=== PATIENT | female | born 1980 | race African-American/Black ===

== ENCOUNTER 2016-05-07 08:35 | Day surgery (SDC) | payer OTHER ==
[2016-04-30 12:16] LABS: HEMATOCRIT 39.1 % (36.0-48.0)
[2016-04-30 12:34] LABS: BUN (BLOOD UREA NITROGEN) 20 MG/DL (6-23); CALCIUM, SERUM 9.1 MG/DL (8.5-10.4); CHLORIDE, SERUM 104 MMOL/L (96-112); CO2 (CARBON DIOXIDE) 24 MMOL/L (24-34); CREATININE 0.76 MG/DL (0.55-1.02); GFR AFRICAN AMERICAN 118 ML/MIN (>=60); GFR NON AFRICAN AMERICAN 102 ML/MIN (>=60); GLUCOSE, SERUM 85 MG/DL (60-99); POTASSIUM, SERUM 4.2 MMOL/L (3.5-5.3); SODIUM, SERUM 140 MMOL/L (135-148)
[2016-04-30 17:11] LABS: A/G RATIO 0.9 (0.7-1.9); ALBUMIN 3.8 G/DL (3.5-5.0); ALKALINE PHOSPHATASE 65 U/L (45-117); GLOBULIN 4.4 G/DL (2.5-4.1); SGPT(ALT) 25 U/L (5-65); TOTAL BILIRUBIN 0.4 MG/DL (0-1.2); TOTAL PROTEIN 8.2 G/DL (6.0-8.5)
[2016-04-30 17:12] LABS: SGOT(AST) 21 U/L (5-40)
--- NOTE | ~2016-05-07 | OP ---
Record Of Operation [facility] [address] [place]. [address] NAME: NYASIA SOLIS : 82 STATUS : [facility]#: [id number] AGE: 36 ADM/REG DATE : 05/07/16 MR#: [id number] REPORT SERV DATE: 05/07/16 DICTATED BY: MOSES MARQUES DATE: 05/07/16 REPORT STATUS : Draft TRANSCRIBED BY: MODL DATE: 05/07/16 DATE OF PROCEDURE: 05/07/2016 PREOPERATIVE DIAGNOSIS: Incarcerated epigastric hernia. POSTOPERATIVE DIAGNOSIS: Incarcerated epigastric hernia. PROCEDURE: Reduction and mesh patch repair of incarcerated epigastric hernia. SURGEON: Moses Marques M.D. DESCRIPTION OF OPERATIVE PROCEDURE: The patient was brought to the operating suite, placed in supine position, underwent satisfactory general endotracheal anesthesia without incident. The skin of the abdomen was scrubbed, prepped, and draped in the usual sterile fashion. 0.5% Marcaine with epinephrine was utilized as supplemental local anesthesia at the intended incision site in the epigastrium. A 4 cm incision was made in the skin dissecting through the subcutaneous tissue. Eventually, I encountered a protrusion of preperitoneal fat through the epigastric defect in the midline. The fat was dissected free from the subcutaneous fat bluntly and using cautery down to the level of muscular aponeurotic fascia. At this level, the fat was reduced through the muscular aponeurotic fascia and then examining finger was used to bluntly dissect a preperitoneal plane behind the midline rectus sheath and the linea alba. This dissection plane was large enough to accept a PVPM bicomponent mesh patch, which was placed into this preperitoneal space. The suturing tails of the mesh were trimmed and utilizing a "njkp-ldap-expla" interrupted vertical mattress fashion the cephalad aspect of the midline fascia was drawn over the caudad aspect with three separate placed sutures of 0 Ethibond. These sutures were tied down and the excess tails were trimmed. Subcutaneous tissue was irrigated and closed with interrupted 3-0 Vicryl running subcuticular stitch, 4-0 Vicryl for the skin, and Dermabond skin adhesive placed. The patient tolerated the procedure well and was returned to PACU in stable condition. At termination of the procedure, sponge, needle, lap, and instrument counts were correct x3. Estimated blood loss was less than 10 to 15 mL. WR/MODL Moses Marques M.D. / [id number] CC: Record Of Operation [address] [address] NAME: NYASIA SOLIS : 82 STATUS : [facility] PAT#: [id number] AGE: 36 ADM/REG DATE : 05/07/16 MR#: [id number] REPORT SERV DATE: 05/07/16 DICTATED BY: MOSSE MARQUES DATE: 05/07/16 REPORT STATUS : Draft TRANSCRIBED BY: MODL DATE: 05/07/16 Nancy Mccray PAUL E
[~2016-05-07 08:35] MED LIST: PRILO PO; TYLENOL SEVE PO; ZYRTEC ALLGY10 MG PO
== END 2016-05-07 17:53 | disposition home or self-care (01) ==
LOC: SDC 08:35
PROVIDERS: Specialist
PROC: 0WUF0JZ Supplement Abdominal Wall with Synthetic Substitute, Open Approach (ICD-10-PCS; principal; 2016-05-07 10:15)
DX: K43.6 Other and unspecified ventral hernia with obstruction, without gangrene (principal); K21.9 Gastro-esophageal reflux disease without esophagitis; Z88.1 Allergy status to other antibiotic agents
CPT/HCPCS: 80053; 84703; 85014; 85018; 87641; C1781; J0690; J1885; J2250; J2405; J2710; J3010; J3370